=== PATIENT | male | born 1985 | race Caucasian/White ===

== ENCOUNTER 2022-09-27 07:04 | Day surgery (SDC) | payer OTHER ==
[~2022-09-27] VITALS: Ht 177.8 cm; Wt 131.5 kg
[2022-09-27] MEDS ORDERED: LIDOCAINE 1% 500 MG/50 ML VIAL ONE (11:13)
[2022-09-27] MEDS ORDERED: BUPIVACAINE-MPF/EPI 0.25% 30 ML VIAL INJ ONE (11:13)
[2022-09-27] MEDS ORDERED: BUPIVACAINE-MPF/EPI 0.25% 10 ML VIAL INJ ONE (11:18)
[2022-09-27] MEDS ORDERED: SEVOFLURANE 250 ML BTL INH ONE (12:00)
[2022-09-27] MEDS ORDERED: ONDANSETRON 4 MG/2 ML VIAL ONE ×2 (12:00→12:26)
[2022-09-27] MEDS ORDERED: KETOROLAC 30 MG/ML VIAL ONE ×2 (12:00→12:26)
[2022-09-27] MEDS ORDERED: ePHEDrine 50 MG/ML VIAL ONE ×3 (12:00→12:30)
[2022-09-27] MEDS ORDERED: fentaNYL citrate 0.05 MG/ML - 50mL vial IV ONE (12:00)
[2022-09-27] MEDS ORDERED: PROPOFOL 200 MG/20 ML VIAL IV ONE ×3 (12:00→12:25)
[2022-09-27] MEDS ORDERED: SUGAMMADEX SODIUM 200 MG/2 ML VIAL IV ONE (12:00)
[2022-09-27] MEDS ORDERED: fentaNYL citrate 0.05 MG/ML VIAL ONE (12:21)
[2022-09-27] MEDS ORDERED: SUCCINYLCHOLINE CHLORIDE 200 MG/10 ML VIAL IVP ONE (12:25)
[2022-09-27] MEDS ORDERED: hydrALAZINE 20 MG/ML VIAL IVP PRN (12:54)
[2022-09-27] MEDS ORDERED: LABETALOL 20 MG/4 ML VIAL IVP PRN (12:54)
[2022-09-27] MEDS ORDERED: METOCLOPRAMIDE 10 MG/2 ML INJ VIAL IVP PRN (12:54)
[2022-09-27] MEDS ORDERED: LACTATED RINGERS 1,000 ML IV SCH (12:55)
[2022-09-27] MEDS ORDERED: HYDROmorphone 1 MG/ML AMP IVP PRN (12:55)
== END 2022-09-27 14:06 | disposition home or self-care (01) ==
LOC: MOR 07:04 → MMU 07:05 → MOR 14:06
PROVIDERS: ATTEND Surgery
DX: K60.2 Anal fissure, unspecified (principal); K64.0 First degree hemorrhoids; E66.01 Morbid (severe) obesity due to excess calories; F41.9 Anxiety disorder, unspecified; F32.A Depression, unspecified; K21.9 Gastro-esophageal reflux disease without esophagitis; Z20.822 Contact with and (suspected) exposure to COVID-19; Z79.899 Other long term (current) drug therapy; Z68.41 Body mass index [BMI] 40.0-44.9, adult
CPT/HCPCS: 46080; 71045; 87426; 93005; J0330; J1885; J2001; J2405; J2704; J3010; J3490; J7120